=== PATIENT | female | born 1980 | race Caucasian/White ===

== ENCOUNTER 2016-10-23 10:43 | Emergency (ER) | payer MEDICAID ==
[2016-10-23 10:50] VITALS: TEMP 97.7
--- NOTE | 2016-10-23 11:10 | EDPHY ---
General Narrative: CHIEF COMPLAINT: Left foot pain HISTORY OF PRESENT ILLNESS: complains of pain in the bottom and dorsum of the left foot. Yesterday she was walking down the street when she stepped on a large piece of ice/snow. She said she is not exactly sure what happened at that time. But since that time, she has had increasing pain near the MTP joint both dorsum and plantar. No abrasions, contusions or lacerations. No pain in his lateral ankle, wing, heel or knee. Worse with palpation. Improved at rest. Does not radiate. No other associated complaints or modifying factors. REVIEW OF SYSTEMS: Ten systems reviewed and are negative unless otherwise noted in the HPI EXAMINATION General Appearance: Alert, no distress Head: normocephalic, atraumatic Eyes: Pupils equal and round, no conjunctival pallor or injection Neck: Normal inspection Respiratory: No dyspnea or retractions. No distress Cardiovascular: Pulses normal throughout With 2+ symmetric DP and PT pulses. Brisk cap refill Gastrointestinal: No distention Neurological: A&O, sensory symmetric, strength symmetric in all limbs Skin: Warm and dry, no rash Extremities: left lower extremity: Tenderness to palpation at the MTP joint dorsum and plantar surface. No crepitus. No step-off or deformity. No talar shift. No malleolar tenderness. No tenderness of the heel. Psychiatric: Mood and affect normal MDM: mechanical injury to the left foot. No evidence of fracture dislocation on the x-ray as read by me and the radiologist. There are chronic changes as noted in the report. I discussed the incidental findings with her and recommended she follow up with the primary care physician for definitive care, orthopedist should be warranted by her own tolerance of pain. Discharged home stable conditions with [id number] ibuprofen given her history. Patient is comfortable with this and discharged home in stable condition. ED Precautions: Worsening pain. Erythema, edema, cyanosis, pallor, paresthesia or anesthesia. SUPERVISION: This patient was independently evaluated without the aide of supervising physician. - History Smoking Status: Current every day smoker - Objective Vital Signs: Initial Vital Signs Temperature (C) 97.7 F 10/23/16 10:49 Heart Rate 80 10/23/16 10:49 Respiratory Rate 16 10/23/16 10:49 Blood Pressure 134/74 H 10/23/16 10:49 O2 Sat (%) 94 10/23/16 10:49 O2 Delivery Mode Room Air Allergies/Adverse Reactions: No Known Allergies Allergy (Verified 09/03/16 11:14) Home Medications: Medication Instructions Recorded Chlorthiadone 04/07/15 Gabapentin [Neurontin] 100 mg PO HS 04/07/15 Topiramate [Topamax 100MG (*)] 100 mg PO 06/13/16 IBUPROFEN 08/15/16 Omeprazole 08/15/16 Magnesium Citrate [Magnesium 300 ml PO ONCE #1 bottle 08/23/16 Citrate 300 ml (*)] Potassium Chloride [Klor-Con] 20 meq PO DAILY #15 packet 08/23/16 Oxycodone HCl 5 mg PO Q4-6PRN PRN #11 capsule 09/03/16 Departure - Departure Disposition: Home, Routine, Self-Care Clinical Impression: Foot sprain Qualifiers: Encounter type: initial encounter Laterality: left Qualifier Code: (S93.602A) Unspecified sprain of left foot, initial encounter Acute foot pain Qualifiers: Laterality: left Qualifier Code: (M79.672) Pain in left foot Condition: Good Instructions: Foot Sprain (ED) Additional Instructions: Follow-up with Orthopedics, chief enterprise architect or PCP. ER precautions as discussed Referrals: Mercedes Ansari [Primary Care Provider] - As per Instructions
--- NOTE | 2016-10-23 11:43 | DX ---
Left foot, 3 views. HISTORY: Pain. Trauma. FINDINGS: Moderate hallux valgus with lateral subluxation of the sesamoids. No fracture or periostitis. Joint spaces are maintained. A small bone fragment anterior to the tibial plafond may represent a sequela of prior trauma, well co rticated. There is also a well-corticated bone fragment dorsal to the tarsal-metatarsal articulation on lateral radiograph which appears smoothly marginated and well corticated, without soft tissue swel ling. This bone fragment appears interposed between the proximal first and second metatarsals on the AP examination. IMPRESSION: 1. Sequela prior trauma and underlying hallux valgus, without acute fracture identified.
[2016-10-23 12:34] VITALS: BP 165/86; PULSE 85; RESP 19; O2SAT 96
== END 2016-10-23 12:32 | disposition home or self-care (01) ==
DX: S93.602A Unspecified sprain of left foot, initial encounter (principal); F17.200 Nicotine dependence, unspecified, uncomplicated; X58.XXXA Exposure to other specified factors, initial encounter; Y92.410 Unspecified street and highway as the place of occurrence of the external cause; Y93.01 Activity, walking, marching and hiking

== ENCOUNTER 2016-12-11 05:21 | Emergency (ER) | payer MEDICAID ==
[2016-12-11 05:28] VITALS: BP 146/82; PULSE 82; RESP 16; TEMP 97.9; O2SAT 96
--- NOTE | 2016-12-11 07:08 | EDPHY ---
H & P Time Seen by Provider: 12/11/16 07:00 HPI/ROS: CHIEF COMPLAINT: ongoing left foot pain HISTORY OF PRESENT ILLNESS: 36-year-old female presents ongoing left foot pain. She slipped on the ice in October and since then she has ongoing left foot pain. The pain is located the base of her 2nd toe. The pain increases 2nd toe movement and with weight-bearing. She has been seen in this emergency department once and by her primary care physician twice for pain. X-ray reportedly negative. ROS: No numbness, weakness, bleeding, syncopal episode, other injury. Past Medical/Surgical History: Obesity Arthritis History of narcotic addiction, in recovery Smoking Status: Current every day smoker Physical Exam: Alert and oriented, no acute distress. Extremities: left foot-normal inspection, tenderness at the base of the 2nd toe on the dorsal and plantar surface, pain with range of motion 2nd toe Skin: intact, no erythema or warmth Neuro: Motor and sensory intact Vascular: Capillary refill brisk distally. Constitutional: Initial Vital Signs Temperature (C) 36.6 C 12/11/16 05:24 Heart Rate 82 12/11/16 05:24 Respiratory Rate 16 12/11/16 05:24 Blood Pressure 146/82 H 12/11/16 05:24 O2 Sat (%) 96 12/11/16 05:24 O2 Delivery Mode Room Air Allergies/Adverse Reactions: No Known Allergies Allergy (Verified 12/11/16 05:28) Home Medications: Medication Instructions Recorded Chlorthiadone 04/07/15 Gabapentin [Neurontin] 100 mg PO HS 04/07/15 Topiramate [Topamax 100MG (*)] 100 mg PO 06/13/16 IBUPROFEN 08/15/16 Potassium Chloride [Klor-Con] 20 meq PO DAILY #15 packet 08/23/16 Medical Decision Making - Diagnostics Imaging: X-ray independently reviewed by me reveals no acute fracture. ED Course/Re-evaluation: I gave this patient a postop shoe. She is currently wearing slippers, which will certainly aggravate the pain, given lack of support or cushioning. I instructed her on how to sofi tape her toes. She will follow up with a pulp drier firer. Departure - Departure Disposition: Home, Routine, Self-Care Clinical Impression: Foot pain, left Condition: Good Instructions: Arthralgia (ED) Additional Instructions: Ibuprofen 600 mg 3 times daily while the pain persists. Referrals: Mercedes Ansari [Primary Care Provider] - As per Instructions Jose Del Cid DPM [Doctor of Podiatric Medicine] - As per Instructions (You have been referred to a pulp drier firer. Call to make an appointment.)
== END 2016-12-11 07:55 | disposition home or self-care (01) ==
DX: M79.672 Pain in left foot (principal); F17.200 Nicotine dependence, unspecified, uncomplicated
CPT/HCPCS: L3260

== ENCOUNTER 2016-12-23 13:27 | Emergency (ER) | payer MEDICAID ==
[2016-12-23 15:11] LABS: COLOR YELLOW; LEUKOCYTE ESTERASE,URINE NEGATIVE (NEGATIVE); NITRITE,URINE NEGATIVE (NEGATIVE)
[2016-12-23] MEDS ORDERED: OXYCODONE/APAP 5/325 TAB PO ONE (15:26)
--- NOTE | 2016-12-23 15:26 | EDPHY ---
H & P Stated Complaint: Back and L abdo pain-thinks kidney infection Time Seen by Provider: 12/23/16 15:15 HPI/ROS: HPI: 36-year-old female presents to emergency department with chief concern left side pain. Reports 9/10 pleuritic left sided dull aching pain that onset suddenly yesterday morning possibly associated with urinary frequency but this is difficult to assess as she takes hydrochlorothiazide and "pees often". Pain is located in the left low flank, left side, left low abdomen, left mid abdomen , left lower ribs. Denies fever, chills, myalgias, URI symptoms, shortness of breath, chest pain, nausea, vomiting. No aggravating or alleviating factors. This is associated with a decreased appetite. No recent trauma. No calf pain or swelling. Has a past medical history history that includes obesity, polysubstance abuse, back surgery, cholecystectomy, cholelithiasis, meth use, current daily smoker, constipation. No personal history of coagulopathy. Brother has a history of blood clots. No recent long car or plane travel. No personal or family history of kidney stone. ROS:10 point review of systems is negative other than as stated in HPI Source: Patient Exam Limitations: No limitations - Personal History LMP (Females 10-55): 8-14 Days Ago Current Tetanus/Diphtheria Vaccine: Unsure Current Tetanus Diphtheria and Acellular Pertussis (TDAP): Unsure Tetanus Vaccine Date: < 10 YEARS - Medical/Surgical History Hx Asthma: No Hx Chronic Respiratory Disease: Yes Hx Diabetes: No Hx Cardiac Disease: Yes Hx Renal Disease: No Hx Cirrhosis: No Hx Alcoholism: No Hx HIV/AIDS: No Hx Splenectomy or Spleen Trauma: No Other PMH: PMHx: obesity, HEART MURMUR, ANNABEL, CHF, arthritis,. PSHx: L4-5 disectomy-back surg 8 yrs ago, gall bladder, tubal ligation, BIPOLAR - Family History Significant Family History: No pertinent family hx - Social History Smoking Status: Heavy smoker Alcohol Use: Occasionally Drug Use: Other (History of polysubstance abuse) Additional Social History: - Physical Exam Exam: Vital signs stable, reviewed by me General: Obese, Awake, alert, calm, cooperative. No acute distress. Head: Normalocephalic. Atraumatic. EENT: PERRLA. EOMI. No pallor or injection. Anicteric. No nystagmus. No injection. TMs intact bilaterally with normal landmarks. No rhinnorhea, nasal passages clear. Oropharynx without redness, exudates, or lesions. Tonsils 2+ bilaterally, no exudates. Neck: Supple, nontender. No lymphadenopathy. Full range of motion. No meningismus. Respiratory: Breathing unlabored. Breath sounds equal bilaterally and clear to auscultation. No adventitious sounds. CV: Chest nontender, atraumatic. Heart rate regular. No murmur, distal pulses 2+ bilaterally. Brisk cap refill all extremities. GI: Abdomen soft, generalized left-sided tenderness. Bowel sounds normoactive and positive x4 quadrants. : No suprapubic tenderness. No CVA tenderness. Neuro: Alert. Oriented x 3. Speech clear. Nonfocal cranial nerves throughout. Sensation intact all extremities. Skin: Skin warm, dry, intact. No rashes, abrasions, or lacerations. Skin turgor normal. Extremities: Full range of motion in all 4 extremities. Strength 5+ all extremities. No calf pain or swelling. Negative Homans sign bilaterally. Constitutional: Initial Vital Signs Temperature (C) 36.6 C 12/23/16 13:39 Heart Rate 73 12/23/16 13:39 Respiratory Rate 18 12/23/16 13:39 O2 Sat (%) 95 12/23/16 13:39 O2 Delivery Mode Room Air Allergies/Adverse Reactions: No Known Allergies Allergy (Verified 12/23/16 13:45) Home Medications: Medication Instructions Recorded Gabapentin [Neurontin] 100 mg PO HS 04/07/15 Topiramate [Topamax 100MG (*)] 100 mg PO 06/13/16 IBUPROFEN 08/15/16 Potassium Chloride [Klor-Con] 20 meq PO DAILY #15 packet 08/23/16 Hydrochlorothiazide 12/23/16 oxyCODONE/APAP 5/325 [Percocet 1 - 2 tab PO Q6H PRN #4 tab 12/23/16 5/325 (*)] Medical Decision Making - Diagnostics Imaging: KUB , 3 views History: Left-sided flank pain x2 days history of cholecystectomy Comparison: None Findings: There is fecal material throughout the nondilated colon. The patient is obese. There is no evidence of bowel obstruction. There are no dilated loops. Retroperitoneal fat planes appear intact. The lung bases are normally aerated. Right upper quadrant surgical clips are consistent with previous cholecystectomy. Impression: Possible constipation. No obstruction. Dictated By: Aravind Qiu MD CT angio chest: Indication: Elevated D-dimer, pleuritic left-sided pain extending under the left ribs No evidence of pulmonary embolism, final report pending at time this dictation ED Course/Re-evaluation: 36-year-old female presents to emergency department with chief concern "left- side pain." When asked about the location of her pain, she points to her left abdomen, left side, and left low back. Past medical history is notable for abdominal pain, cholecystectomy, constipation. She had an abdominal MRI in August of 2016. Requests pain meds. She is on a no narcotic list. She is given 2 Percocet for pain. Labs are pending. Will check a D-dimer since her pain is pleuritic, there is a positive family history of blood clots, and pain does include the left lower chest. Urinalysis is negative for evidence of UTI or hematuria. Urine HCG is negative. Have considered kidney stone however there is no personal or family history of this and given a urinalysis negative for RBCs, will avoid CT of the abdomen and pelvis for now. KUB shows possible constipation. She has a history of this. Will have her use magnesium citrate [id number]. D-dimer was mildly positive. CT angio chest negative for evidence of pulmonary embolism. She has been counseled regarding the need for prompt follow-up tomorrow for recheck with primary care. She agrees to do so. Her vitals are entirely stable at discharge. Pain has resolved at discharge. She is afebrile. Differential Diagnosis: Differential diagnosis includes but is not limited to and in no particular order pyelonephritis, kidney stone, constipation, diverticulitis, pulmonary embolism, pneumonia - Data Points Laboratory Results: Laboratory Results 12/23/16 15:30 12/23/16 15:30 12/23/16 12/23/16 12/23/16 15:30 15:30 15:30 WBC 10.73 10^3/uL H 10^3/uL (3.80-9.50) RBC 4.97 10^6/uL 10^6/uL (4.18-5.33) Hgb 14.7 g/dL g/dL (12.6-16.3) Hct 43.1 % % (38.0-47.0) MCV 86.7 fL fL (81.5-99.8) MCH 29.6 pg pg (27.9-34.1) MCHC 34.1 g/dL g/dL (32.4-36.7) RDW 13.1 % % (11.5-15.2) Plt Count 311 10^3/uL 10^3/uL (150-400) MPV 10.1 fL fL (8.7-11.7) Neut % (Auto) 58.9 % % (39.3-74.2) Lymph % (Auto) 32.9 % % (15.0-45.0) [place] % (Auto) 5.7 % % (4.5-13.0) Eos % (Auto) 1.8 % % (0.6-7.6) Baso % (Auto) 0.4 % % (0.3-1.7) Nucleat RBC Rel Count 0.0 % % (0.0-0.2) Absolute Neuts (auto) 6.33 10^3/uL 10^3/uL (1.70-6.50) Absolute Lymphs (auto) 3.53 10^3/uL H 10^3/uL (1.00-3.00) Absolute Monos (auto) 0.61 10^3/uL 10^3/uL (0.30-0.80) Absolute Eos (auto) 0.19 10^3/uL 10^3/uL (0.03-0.40) Absolute Basos (auto) 0.04 10^3/uL 10^3/uL (0.02-0.10) Absolute Nucleated RBC 0.00 10^3/uL 10^3/uL (0-0.01) Immature Gran % 0.3 % % (0.0-1.1) Immature Gran # 0.03 10^3/uL 10^3/uL (0.00-0.10) D-Dimer 0.52 ug/mLFEU H ug/mLFEU (0.00-0.50) Sodium 141 mEq/L mEq/L (134-144) Potassium 3.4 mEq/L L mEq/L (3.5-5.2) Chloride 106 mEq/L mEq/L (97-110) Carbon Dioxide 24 mEq/l mEq/l (22-31) Anion Gap 11 mEq/L mEq/L (8-16) BUN 16 mg/dL mg/dL (7-23) Creatinine 0.9 mg/dL mg/dL (0.6-1.0) Estimated GFR > 60 Glucose 102 mg/dL H mg/dL (70-100) Calcium 9.3 mg/dL mg/dL (8.5-10.4) Urine Color Urine Appearance Urine pH Ur Specific Harris Urine Protein Urine Ketones Urine Blood Urine Nitrate Urine Bilirubin Urine Urobilinogen Ur Leukocyte Esterase Urine Glucose Urine Test 12/23/16 12/23/16 14:36 14:36 WBC RBC Hgb Hct MCV MCH MCHC RDW Plt Count MPV Neut % (Auto) Lymph % (Auto) [place] % (Auto) Eos % (Auto) Baso % (Auto) Nucleat RBC Rel Count Absolute Neuts (auto) Absolute Lymphs (auto) Absolute Monos (auto) Absolute Eos (auto) Absolute Basos (auto) Absolute Nucleated RBC Immature Gran % Immature Gran # D-Dimer Sodium Potassium Chloride Carbon Dioxide Anion Gap BUN Creatinine Estimated GFR Glucose Calcium Urine Color YELLOW Urine Appearance CLEAR Urine pH 5.0 (5.0-7.5) Ur Specific Harris 1.018 (1.002-1.030) Urine Protein NEGATIVE (NEGATIVE) Urine Ketones NEGATIVE (NEGATIVE) Urine Blood NEGATIVE (NEGATIVE) Urine Nitrate NEGATIVE (NEGATIVE) Urine Bilirubin NEGATIVE (NEGATIVE) Urine Urobilinogen NEGATIVE EU EU (0.2-1.0) Ur Leukocyte Esterase NEGATIVE (NEGATIVE) Urine Glucose NEGATIVE (NEGATIVE) Urine Test NEGATIVE Medications Given: Discontinued Medications Oxycodone/Acetaminophen (Percocet 5/325) 2 tab PO EDNOW ONE Stop: 12/23/16 15:27 Last Admin: 12/23/16 15:37 Dose: 2 tab Departure - Departure Disposition: Home, Routine, Self-Care Clinical Impression: Left sided abdominal pain, Left-sided back pain Condition: Good Instructions: Abdominal Pain (ED), Flank Pain (ED) Additional Instructions: Plan: Follow up with primary care provider tomorrow for recheck without fail--When you call to schedule appointment, please let the office know you are an "ER follow up" appointment" May use 1-2 Percocet every 6-8 hours as needed for severe pain--Never drink or drive while taking this medication. This medication impairs decision making capacity so do not work or sign important documents while taking. This medication its constipating so drink plenty of fluids and consider an over-the- counter stool softener such as docusate sodium (Colace) while taking this medication. This medication has addictive properties. You should use the least amount for the shortest amount of time. [facility] do not refill narcotic pain medication prescriptions. This is a hospital policy. You will need to follow up as indicated for recheck for further narcotic refills. Mag citrate [id number] as directed on the bottle for constipation Referrals: Mercedes Ansari [Primary Care Provider] - As per Instructions Prescriptions: oxyCODONE/APAP 5/325 [Percocet 5/325 (*)] 1 - 2 tab PO Q6H PRN #4 tab PRN Reason: Pain, Severe
[2016-12-23 15:39] LABS: % IMMATURE GRANULYOCYTES 0.3 % (0.0-1.1); ABSOLUTE IMMATURE GRANULOCYTES 0.03 10^3/uL (0.00-0.10); ADD DIFF? NO; ADD MORPH? NO; ADD SCAN? NO; ATYPICAL LYMPHOCYTE FLAG 0 (0-99); FRAGMENT RBC FLAG 0 (0-99); HEMATOCRIT 43.1 % (38.0-47.0); HEMOGLOBIN 14.7 g/dL (12.6-16.3); LEFT SHIFT FLG 0 (0-99); LIPEMIA HEMOLYSIS FLAG 90 (0-99); MEAN CELL HEMOGLOBIN 29.6 pg (27.9-34.1); MEAN CELL HEMOGLOBIN CONCENTR. 34.1 g/dL (32.4-36.7); MEAN CELL VOLUME 86.7 fL (81.5-99.8); MEAN PLATELET VOLUME 10.1 fL (8.7-11.7); PLATELET CLUMPS FLAG 0 (0-99); PLATELET COUNT 311 10^3/uL (150-400); RED BLOOD CELL COUNT 4.97 10^6/uL (4.18-5.33); RED CELL DISTRIBUTION WIDTH 13.1 % (11.5-15.2)
[2016-12-23 15:57] LABS: ANION GAP 11 mEq/L (8-16); CALCIUM 9.3 mg/dL (8.5-10.4); CARBON DIOXIDE 24 mEq/l (22-31); CHLORIDE 106 mEq/L (97-110); CREATININE 0.9 mg/dL (0.6-1.0); GLOMERULAR FILTRATION RATE > 60; GLUCOSE 102 mg/dL (70-100); POTASSIUM 3.4 mEq/L (3.5-5.2); SODIUM 141 mEq/L (134-144)
[2016-12-23] MEDS ORDERED: IOPAMIDOL (ISOVUE 370) 100 ML BTL IV ONE (16:02)
[2016-12-23 18:04] VITALS: BP 103/65; PULSE 73; RESP 16; TEMP 98.2; O2SAT 93
== END 2016-12-23 18:04 | disposition home or self-care (01) ==
DX: R10.9 Unspecified abdominal pain (principal); M54.9 Dorsalgia, unspecified; I50.9 Heart failure, unspecified; F17.200 Nicotine dependence, unspecified, uncomplicated; Z98.51 Tubal ligation status
CPT/HCPCS: Q9967

== ENCOUNTER 2017-02-28 17:22 | Emergency (ER) | payer MEDICAID ==
[2017-02-28 18:07] VITALS: TEMP 97.7
--- NOTE | 2017-02-28 18:32 | EDPHY ---
H & P Stated Complaint: sore throat x 2 days Source: Patient Exam Limitations: No limitations - Personal History LMP (Females 10-55): 8-14 Days Ago Current Tetanus/Diphtheria Vaccine: Unsure Current Tetanus Diphtheria and Acellular Pertussis (TDAP): Unsure Tetanus Vaccine Date: < 10 YEARS - Medical/Surgical History Hx Asthma: No Hx Chronic Respiratory Disease: Yes Hx Diabetes: No Hx Cardiac Disease: Yes Hx Renal Disease: No Hx Cirrhosis: No Hx Alcoholism: No Hx HIV/AIDS: No Hx Splenectomy or Spleen Trauma: No Other PMH: PMHx: obesity, HEART MURMUR, ANNABEL, CHF, arthritis,. PSHx: L4-5 disectomy-back surg 8 yrs ago, gall bladder, tubal ligation, BIPOLAR - Social History Smoking Status: Heavy smoker Time Seen by Provider: 02/28/17 18:22 HPI/ROS: CHIEF COMPLAINT: Sore throat HISTORY OF PRESENT ILLNESS: 36-year-old female presents emergency department complaining of nasal congestion, sore throat, cough and congestion that started yesterday. Patient denies fevers and chills, no chest pain or shortness of breath. Multiple sick contacts at work. Patient reports pain and decreased water intake today due to sore throat. Patient is a daily heavy cigarette smoker. REVIEW OF SYSTEMS: A comprehensive 10 point review of systems is otherwise negative aside from elements mentioned in the history of present illness. (Farideh Cabrera) - Physical Exam Exam: General: Alert, nontoxic. ENT: Tympanic membranes clear, external auditory canal, external ear and surrounding soft tissue including over the mastoid unremarkable. Nasopharynx is injected, there is no rhinorrhea. Oropharynx with erythema. There is no exudate. No tonsillar hypertrophy. No asymmetry. The uvula is midline. No elevation of tongue. There is no hoarseness. No drooling, patient has good control of their oral secretions. No trismus. No stridor. Cardiac: Regular rate and rhythm. Respiratory: Lungs clear to auscultation bilaterally. Neurological: no meningismus. Skin: No rashes. (Farideh Cabrera) Constitutional: Initial Vital Signs Temperature (C) 36.5 C 02/28/17 18:05 Heart Rate 77 02/28/17 18:05 Respiratory Rate 16 02/28/17 18:05 Blood Pressure 155/85 H 05/26/17 18:05 O2 Sat (%) 98 02/28/17 18:05 O2 Delivery Mode Room Air Allergies/Adverse Reactions: No Known Allergies Allergy (Verified 12/23/16 13:45) Home Medications: Medication Instructions Recorded Gabapentin [Neurontin] 100 mg PO HS 04/07/15 Topiramate [Topamax 100MG (*)] 100 mg PO 06/13/16 IBUPROFEN 08/15/16 Potassium Chloride [Klor-Con] 20 meq PO DAILY #15 packet 08/23/16 Hydrochlorothiazide 12/23/16 oxyCODONE/APAP 5/325 [Percocet 1 - 2 tab PO Q6H PRN #4 tab 12/23/16 5/325 (*)] Albuterol [Proventil Inhaler HFA 1 - 2 puffs IH Q4H #1 mdi 02/28/17 (*)] Fluticasone Nasal [Flonase Nasal 1 sprays NASAL DAILY #1 mdi 02/28/17 [place] (RX)] Medical Decision Making ED Course/Re-evaluation: I did not see this patient while she was in the emergency department. However her care was discussed with the nurse practitioner while the patient was in the department. I agree with treatment plan and management (Kahlil Garza) - Data Points Laboratory Results: 02/28/17 Unknown Group A Strep DNA NEGATIVE (NEGATIVE) Departure - Departure Disposition: Home, Routine, Self-Care Clinical Impression: URI (upper respiratory infection) Condition: Good Instructions: Upper Respiratory Infection (ED) Additional Instructions: Take over the counter Tylenol and ibuprofen as instructed. Rest, drink plenty of fluids. Use a saline nasal rinse, humidifier at night, hot steam showers. Return to the ED for difficulty breathing, chest pain, other concerns. Use 1 spray of Flonase in each nostril daily for 7 days, use 2 puffs of albuterol inhaler every 4-6 hours as needed for cough. Referrals: Mercedes Ansari [Primary Care Provider] - As per Instructions Stand Alone Forms: Work Excuse Prescriptions: Albuterol [Proventil Inhaler HFA (*)] 1 - 2 puffs IH Q4H #1 mdi Fluticasone Nasal [Flonase Nasal [place] (RX)] 1 sprays NASAL DAILY #1 mdi
[2017-02-28 18:50] VITALS: BP 119/63; PULSE 76; RESP 18; O2SAT 95
== END 2017-02-28 18:49 | disposition home or self-care (01) ==
DX: J06.9 Acute upper respiratory infection, unspecified (principal); I50.9 Heart failure, unspecified; F17.200 Nicotine dependence, unspecified, uncomplicated

== ENCOUNTER 2017-10-06 09:59 | Emergency (ER) | payer SELFPAY ==
[2017-10-06 10:17] VITALS: PULSE 79; RESP 18; TEMP 98.1; O2SAT 95
--- NOTE | 2017-10-06 10:43 | EDPHY ---
H & P Stated Complaint: vaginal itching and burning since yesterday Time Seen by Provider: 10/06/17 10:40 HPI/ROS: HPI: This is a 37-year-old female presents with Chief Complaint:vaginal itching and burning since yesterday Location:vagina Quality: Itching and burning Duration: 1 day Signs and Symptoms: no fever, no nausea, no vomiting, no hematemesis, no blood in stool, no abdominal bloating, no diarrhea, no back pain, no urinary symptoms , no vaginal bleeding, no indigestion, no chest pain, no shortness of breath Timing: Gradual onset, worsening Severity: Moderate Context: Patient reports that 3 nights ago her and her you sex toys and whip cream to at excitement to their sex life. Patient really reports that her is well endowed in normally experiences some discomfort with vaginal penetration. During the sexual encounter of mention, patient reports that she experienced the same level of discomfort as always and denies any vaginal bleeding/trauma. One day ago she started to experience some vaginal itching accompanied by burning and yellowish white discharge. Patient has no history of diabetes. She denies any concern for sexually transmitted disease. She does have a history of PID secondary to gonorrhea approximately 3 years ago. Status post bilateral tubal ligation. Modifying Factors: None Comment: ROS: see HPI Constitutional: No fever, no chills, no weight loss Eyes: No blurred vision Respiratory: No shortness of breath, no cough Cardiovascular: No chest pain, no palpitations Gastrointestinal: No nausea, no vomiting, no diarrhea, no hematemesis, no blood in stool Genitourinary: No dysuria, no blood in urine Extremities: No myalgias, no edema Neurologic: No weakness, no numbness Skin: No rashes, no petechiae Hematologic: No bruising, no bleeding MEDICAL/SURGICAL/SOCIAL HISTORY: Medical history: Bipolar disorder, obesity, HEART MURMUR, ANNABEL, CHF, arthritis Surgical history: Bilateral tubal ligation, cholecystectomy, common bile duct dilatation, back surgery Social history: with 4 children. CONSTITUTIONAL: Obese female, nontoxic in appearance, awake and alert , no obvious distress HEENT: Atraumatic and normocephalic, PERRL, EOMI. Tympanic membranes clear. Oropharynx clear, no exudate and moist pink mucosa. Airway patent. No lymphadenopathy. No meningismus. Cardiovascular: Normal S1/S2, regular rate, regular rhythm, without murmur rub or gallop. PULMONARY/CHEST: Symmetrical and nontender. Clear to auscultation bilaterally. Good air movement. No accessory muscle usage. ABDOMEN: Soft, nondistended, nontender, no rebound, no guarding, no peritoneal signs, no masses or organomegaly. No CVAT. PELVIC: normal external genitalia, normal cervix, cervical os was closed- anteverted, no cervical motion tenderness, no adnexal mass, + thick yellowish white malodorous discharge, no bleeding, no laceration The exam was performed with a jacker feeder. EXTREMITIES: 2/2 pulses, strength 5/5, no deformities, no clubbing, no cyanosis or edema. NEUROLOGICAL: no focal neuro deficits. GCS 15. SKIN: Warm and dry, no erythema. no rash. Good capillary refill. Source: Patient Exam Limitations: No limitations - Personal History LMP (Females 10-55): 22-28 Days Ago Current Tetanus/Diphtheria Vaccine: Yes Tetanus Vaccine Date: < 10 YEARS - Medical/Surgical History Hx Asthma: No Hx Chronic Respiratory Disease: Yes Hx Diabetes: No Hx Cardiac Disease: Yes Hx Renal Disease: No Hx Cirrhosis: No Hx Alcoholism: No Hx HIV/AIDS: No Hx Splenectomy or Spleen Trauma: No Other PMH: PMHx: obesity, HEART MURMUR, ANNABEL, CHF, arthritis,. PSHx: L4-5 disectomy-back surg 8 yrs ago, gall bladder, tubal ligation, BIPOLAR - Social History Smoking Status: Heavy smoker Constitutional: Initial Vital Signs Temperature (C) 36.7 C 10/06/17 10:04 Heart Rate 79 10/06/17 10:04 Respiratory Rate 18 10/06/17 10:04 Blood Pressure 146/80 H 10/06/17 10:04 O2 Sat (%) 95 10/06/17 10:04 O2 Delivery Mode Room Air Allergies/Adverse Reactions: No Known Allergies Allergy (Verified 10/06/17 10:01) Home Medications: Medication Instructions Recorded Gabapentin [Neurontin] 100 mg PO HS 04/07/15 Topiramate [Topamax 100MG (*)] 100 mg PO 06/13/16 IBUPROFEN 08/15/16 Potassium Chloride [Klor-Con] 20 meq PO DAILY #15 packet 08/23/16 Hydrochlorothiazide 12/23/16 Albuterol [Proventil Inhaler HFA 1 - 2 puffs IH Q4H #1 mdi 02/28/17 (*)] Fluticasone Nasal [Flonase Nasal 1 sprays NASAL DAILY #1 mdi 02/28/17 [place] (RX)] Chlorthalidone 10/06/17 Metronidazole [Metrogel-Vaginal] 1 annika VG HS 5 Days #5 gel.w.appl 10/06/17 traMADol 10/06/17 Medical Decision Making ED Course/Re-evaluation: Pelvic exam performed and vaginal swabs obtained No signs of vaginal trauma/laceration/bleeding No signs of PID Vital signs stable upon arrival. Patient was treated with 1 dose of Diflucan and Metrogel vaginal insertion for bacterial vaginosis. This patient was seen under the supervision of my secondary supervising physician. I evaluated care for this patient independently. Discussed this patient with Dr. Tompkins who did not see the patient. Patient's presentation, labs/imaging, treatment and plan of care were discussed with secondary supervising physician. Differential Diagnosis: Differential diagnosis includes but is not limited to bacterial vaginosis, candidiasis, gonorrhea, chlamydia, Trichomonas. - Data Points Laboratory Results: 10/06/17 10/06/17 10:35 10:35 Trichomonas (Wet Prep) NO YEAST Hailey species DNA NEGATIVE (NEGATIVE) C.trachomatis RNA (TMA) Pending [place]rella DNA Probe POSITIVE H (NEGATIVE) N.gonorrhoeae RNA (TMA) Pending Trichomonas DNA Probe NEGATIVE (NEGATIVE) Medications Given: Discontinued Medications Fluconazole (Diflucan) 150 mg PO EDNOW ONE Stop: 10/06/17 11:37 Last Admin: 10/06/17 11:45 Dose: 150 mg Departure - Departure Disposition: Home, Routine, Self-Care Clinical Impression: Bacterial vaginitis Condition: Good Instructions: Bacterial Vaginosis (ED) Additional Instructions: Please observe pelvic rest x 1 week. Pelvic rest includes no tampons, douching, sexual vaginal intercourse. Please take all medications as prescribed until fully complete. Referrals: Mercedes Ansari [Primary Care Provider] - As per Instructions Prescriptions: Metronidazole [Metrogel-Vaginal] 1 annika VG HS 5 Days #5 gel.w.appl
[2017-10-06] MEDS ORDERED: FLUCONAZOLE 150 MG TAB PO ONE (11:36)
[2017-10-06 11:49] VITALS: BP 139/89
[2017-10-07 12:56] LABS: GC AMPLIFICATION GENPROBE NEGATIVE (NEGATIVE)
== END 2017-10-06 11:49 | disposition home or self-care (01) ==
DX: N76.0 Acute vaginitis (principal); I50.9 Heart failure, unspecified

== ENCOUNTER 2018-02-09 15:43 | Emergency (ER) | payer MEDICAID ==
--- NOTE | 2018-02-09 15:52 | EDPHY ---
H & P Stated Complaint: sore throat, cough, ear ache and fatigue since 02/08/18. Time Seen by Provider: 02/09/18 15:52 HPI/ROS: HPI CHIEF COMPLAINT: Sore throat HISTORY OF PRESENT ILLNESS: Patient is a 37-year-old female, she presents emergency room with sore throat times 24 hr. No fever. Endorses a dry cough. Complains of ear fullness/discomfort, main complaint is discomfort in her throat. She denies high fever vomiting. Denies chest pain or shortness of breath. Current level pain 12/13. Past Medical History: chronic pain, chronic neuropathy Past Surgical History: Diskectomy, Social History: Denies daily use of drugs alcohol tobacco. Family History: Noncontributory ROS REVIEW OF SYSTEMS: A comprehensive 10 point review of systems is otherwise negative aside from elements mentioned in the history of present illness. Exam Constitutional appears nontoxic no acute distress triage nursing summary reviewed, vital signs reviewed, awake/alert. Eyes normal conjunctivae and sclera, EOMI, PERRLA. HENT posterior pharynx erythematous, no significant exudate, no significant swelling, uvula midline, TMs are clear bilaterally. moist mucus membranes, no epistaxis, neck supple/ no meningismus, no raccoon eyes. Respiratory clear to auscultation bilaterally, normal breath sounds, no respiratory distress, no wheezing. Cardiovascular rate normal, regular rhythm, no murmur, no edema, distal pulses normal. Gastrointestinal soft, non-tender, no rebound, no guarding, normal bowel sounds, no distension, no pulsatile mass. Genitourinary no CVA tenderness. Musculoskeletal no midline vertebral tenderness, full range of motion, no calf swelling, no tenderness of extremities, no meningismus, good pulses, neurovascularly intact. Skin pink, warm, & dry, no rash, skin atraumatic. Neurologic awake, alert and oriented x 3, AAOx3, moves all 4 extremities equally, motor intact, sensory intact, CN II-XII intact, normal cerebellar, normal vision, normal speech. Psychiatric normal mood/affect. Heme/Lymph/Immune no lymphadenopathy. Differential Diagnosis: Includes but is not limited to in a particular order, viral syndrome, upper respiratory tract infection, viral pharyngitis, strep pharyngitis, mono Medical Decision Making: Plan for this patient rapid strep. Re-evaluation: Given the erythema over tonsillar bed will most likely treat with azithromycin, Decadron and ibuprofen. Rapid strep has been sent. Discussed return precautions with her she understands return emergency room she develops worsening symptoms, this includes high fever, vomiting, severe sore throat, worsening symptoms. Rapid strep noted be negative. Prescription provided for as a throat Decadron ibuprofen. Return precautions discussed with the patient. She understands return emergency room if develops worsening pain vomiting or fever. Source: Patient - Personal History LMP (Females 10-55): 1-7 Days Ago Current Tetanus Diphtheria and Acellular Pertussis (TDAP): Yes Tetanus Vaccine Date: < 10 YEARS - Medical/Surgical History Hx Asthma: No Hx Chronic Respiratory Disease: Yes Hx Diabetes: No Hx Cardiac Disease: Yes Hx Renal Disease: No Hx Cirrhosis: No Hx Alcoholism: No Hx HIV/AIDS: No Hx Splenectomy or Spleen Trauma: No Other PMH: PMHx: obesity, HEART MURMUR, ANNABEL, CHF, arthritis,. PSHx: L4-5 disectomy-back surg 8 yrs ago, gall bladder, tubal ligation, BIPOLAR - Social History Smoking Status: Heavy smoker Constitutional: Initial Vital Signs Temperature (C) 36.2 C 02/09/18 15:45 Heart Rate 110 H 02/09/18 15:45 Respiratory Rate 18 02/09/18 15:45 Blood Pressure 120/82 H 02/09/18 15:45 O2 Sat (%) 94 02/09/18 15:45 O2 Delivery Mode Room Air Allergies/Adverse Reactions: No Known Allergies Allergy (Verified 10/06/17 10:01) Home Medications: Medication Instructions Recorded Gabapentin [Neurontin] 100 mg PO HS 04/07/15 Topiramate [Topamax 100MG (*)] 100 mg PO 06/13/16 IBUPROFEN 08/15/16 Potassium Chloride [Klor-Con] 20 meq PO DAILY #15 packet 08/23/16 Hydrochlorothiazide 12/23/16 Albuterol [Proventil Inhaler HFA 1 - 2 puffs IH Q4H #1 mdi 02/28/17 (*)] Fluticasone Nasal [Flonase Nasal 1 sprays NASAL DAILY #1 mdi 02/28/17 [place] (RX)] Chlorthalidone 10/06/17 Metronidazole [Metrogel-Vaginal] 1 annika VG HS 5 Days #5 gel.w.appl 10/06/17 traMADol 10/06/17 Azithromycin [Zithromax] 250 mg PO DAILY #6 tab 02/09/18 Dexamethasone [Decadron 4 MG (*)] 4 mg PO DAILY #4 tab 02/09/18 Ibuprofen [Motrin (*)] 800 mg PO Q6-8PRN #10 tab 02/09/18 Medical Decision Making - Data Points Laboratory Results: 02/09/18 02/09/18 Unknown 16:00 Group A Strep Screen NEGATIVE (NEGATIVE) Group A Strep DNA Pending Departure - Departure Disposition: Home, Routine, Self-Care Clinical Impression: Pharyngitis Qualifiers: Pharyngitis/tonsillitis etiology: unspecified etiology Qualified Code(s): J02.9 - Acute pharyngitis, unspecified Condition: Good Instructions: Pharyngitis (ED) Additional Instructions: 1. Take antibiotics as prescribed. 2. Drink lots of fluids. 3. Return emergency room if you have worsening symptoms questions or concerns. Referrals: Mercedes Ansari [Primary Care Provider] - As per Instructions Prescriptions: Azithromycin [Zithromax] 250 mg PO DAILY #6 tab Dexamethasone [Decadron 4 MG (*)] 4 mg PO DAILY #4 tab Ibuprofen [Motrin (*)] 800 mg PO Q6-8PRN #10 tab
[2018-02-09 17:18] VITALS: BP 115/76
== END 2018-02-09 17:18 | disposition home or self-care (01) ==
DX: J02.9 Acute pharyngitis, unspecified (principal); I50.9 Heart failure, unspecified; F17.200 Nicotine dependence, unspecified, uncomplicated

== ENCOUNTER 2018-08-05 11:13 | Emergency (ER) | payer MEDICAID ==
[2018-08-05 11:28] VITALS: BP 147/94
--- NOTE | 2018-08-05 11:38 | EDPHY ---
General Time Seen by Provider: 08/05/18 11:34 Narrative: CHIEF COMPLAINT: Back pain HISTORY OF PRESENT ILLNESS: Patient presents by private vehicle with complaints of low back pain. Onset is 2-3 days ago. Location is right lower back, over her sacroiliac joint. Duration is constant. Rated as [id number] 1st. Now moderate. Worse with any kind of palpation or movement. Does not radiate. Denies any neuro complaints other than when she places a lidocaine patch on the area, at which time she developed some tingling in her right foot. No improvement with massage , heat, lidocaine patch. She has no incontinence of bowel or bladder. No fever. No spinal injections. No IV drug use. She has no midline tenderness. No trauma. No difficulty ambulating. No other associated complaints or modifying factors. REVIEW OF SYSTEMS: 10 systems were reviewed and negative with the exception of the elements mentioned in the history of present illness. PCP: Dr. Flor Ansari SPECIALISTS: Neurosurgery specialists PAST MEDICAL HISTORY: Bipolar disorder Morbid obesity, murmur, sleep apnea, CHF, osteoarthritis, degenerative disc disease PAST SURGICAL HISTORY: L4-5 diskectomy and fusion, cholecystectomy, tubal ligation SOCIAL HISTORY: Quit smoking 2 days ago. No alcohol use. Lives independently. FAMILY HISTORY: Noncontributory EXAMINATION: General Appearance: Alert, no distress. Ambulatory. Conversing in full and clear sentences. Head: normocephalic, atraumatic Eyes: Pupils equal and round, no conjunctival pallor or injection ENT, Mouth: Mucous membranes moist Neck: Normal inspection, supple, non-tender Cardiovascular: Regular rate. Symmetric DP pulses with good signs of perfusion distally. Back: Soft tissue tenderness over the right SI joint. There is no midline tenderness of the thoracic, lumbar cervical spine. No crepitus or deformity. Range of motion intact. Neurological: A&O, nonfocal, normal gait. Light sensory symmetric in lower extremities. Patellar reflexes symmetric 2+. Strength is symmetric in the hips , knees, ankles and great toes. Normal proprioception of the right great toe. steady gait Skin: Warm and dry, no rash. Multiple tattoos Extremities: Nontender, no pedal edema Psychiatric: Mood and affect normal DIFFERENTIAL DIAGNOSES: Including but not limited to sprain, strain, fracture, lumbar radiculopathy, sacroiliitis, diskitis MDM: 11:40 a.m. Acute right low back pain consistent with sacroiliitis versus sciatica versus strain. She has no history of trauma, spinal injections or IV drug abuse. She is status post L4-5 fusion many years ago. She is fully ambulatory without difficulty with steady gait. No evidence of acute cord compression, cauda equina or diskitis. No bony tenderness. No indication for x-ray or further imaging. We discussed symptomatic medications and follow up with her established care. We discussed ED precautions for any midline tenderness, fever , incontinence, numbness, tingling or weakness. She is comfortable this plan. She is discharged home stable condition. SUPERVISION: This patient was independently evaluated without direct involvement of or examination by the attending physician. CONSULTATION: None - History Smoking Status: Heavy smoker - Objective Vital Signs: Initial Vital Signs Temperature (C) 98.6 F 08/05/18 11:26 Heart Rate 81 08/05/18 11:26 Respiratory Rate 16 08/05/18 11:26 Blood Pressure 147/94 H 08/05/18 11:26 O2 Sat (%) 98 08/05/18 11:26 O2 Delivery Mode Room Air Allergies/Adverse Reactions: No Known Allergies Allergy (Verified 08/05/18 11:23) Home Medications: Medication Instructions Recorded Gabapentin [Neurontin] 100 mg PO HS 04/07/15 Topiramate [Topamax 100MG (*)] 100 mg PO 06/13/16 Albuterol [Proventil Inhaler HFA 1 - 2 puffs IH Q4H #1 mdi 02/28/17 (*)] traMADol 10/06/17 Dexamethasone [Decadron 4 MG (*)] 8 mg PO ONCE #2 tab 08/05/18 Wellbutrin 100mg (*) 08/05/18 Departure - Departure Disposition: Home, Routine, Self-Care Clinical Impression: Sacroiliitis Low back strain Qualifiers: Encounter type: initial encounter Qualified Code(s): S39.012A - Strain of muscle, fascia and tendon of lower back, initial encounter Condition: Good Instructions: Low Back Strain (ED), Sacroiliitis (ED), Lower Back Exercises (ED ) Additional Instructions: 1. Rest and light activity as tolerated 2. Ibuprofen 600 mg every 8 hr as needed for discomfort 3. Warm compresses or heating pad 4 times daily. Do not sleep on these 4. Continue lidocaine patches as needed 5. Follow up with primary care physician for re-evaluation and consideration of physical therapy 6. ED precautions for worsening pain, numbness, tingling or weakness, incontinence Referrals: Mercedes Ansari [Primary Care Provider] - As per Instructions Prescriptions: Dexamethasone [Decadron 4 MG (*)] 8 mg PO ONCE #2 tab
== END 2018-08-05 11:55 | disposition home or self-care (01) ==
DX: M46.1 Sacroiliitis, not elsewhere classified (principal); S39.012A Strain of muscle, fascia and tendon of lower back, initial encounter; X58.XXXA Exposure to other specified factors, initial encounter; F32.9 Major depressive disorder, single episode, unspecified; G47.33 Obstructive sleep apnea (adult) (pediatric); I50.9 Heart failure, unspecified; E66.01 Morbid (severe) obesity due to excess calories; Z68.43 Body mass index [BMI] 50.0-59.9, adult; F17.210 Nicotine dependence, cigarettes, uncomplicated; Z98.1 Arthrodesis status

== ENCOUNTER 2018-10-26 19:28 | Emergency (ER) | payer MEDICAID ==
[2018-10-26 19:37] VITALS: BP 139/94
[2018-10-26] MEDS ORDERED: KETOROLAC 30 MG/1 ML SDV IM ONE (20:26)
--- NOTE | 2018-10-26 20:30 | EDPHY ---
H & P Time Seen by Provider: 10/26/18 19:44 HPI/ROS: Chief complaint: Low back pain. History of present illness: This is a 38-year-old female who presents to the emergency department for low back pain. She reports the onset of symptoms over the last day. She describes a soreness to the left lower back. It does not radiate. She denies specific precipitating factors. She denies alleviating factors. She does feel like she has had increased urination over the last day but there has been no pain with urination, no hesitancy with urination and no blood in the urine. She denies history of direct trauma. No pain along the spine itself. No pain in the legs. No fevers. No paresthesias, weakness or paralysis or bowel dysfunction. Smoking Status: Heavy smoker Physical Exam: General Appearance: Alert, nontoxic. Eyes: Pupils equal and round no injection. Respiratory: Chest is non tender, lungs are clear to auscultation. Cardiac: regular rate and rhythm Gastrointestinal: Abdomen is soft and non tender, no masses, bowel sounds normal. Musculoskeletal: Neck is supple and non tender. The spine is nontender to palpation along its entire length. Patient is tender to palpation over the left lower lumbar region. I am able to reproduce her pain. Extremities have full range of motion and are non tender. Skin: No rashes or lesions. Neurological: Alert and oriented x4. Strength and sensation intact and symmetrical. Ambulating without difficulty. Constitutional: Initial Vital Signs Temperature (C) 36.8 C 10/26/18 19:36 Heart Rate 99 10/26/18 19:36 Respiratory Rate 18 10/26/18 19:36 Blood Pressure 139/94 H 10/26/18 19:36 O2 Sat (%) 99 10/26/18 19:36 O2 Delivery Mode Room Air Allergies/Adverse Reactions: No Known Allergies Allergy (Verified 10/26/18 19:35) Home Medications: Medication Instructions Recorded Gabapentin [Neurontin] 100 mg PO HS 04/07/15 Topiramate [Topamax 100MG (*)] 100 mg PO 06/13/16 Albuterol [Proventil Inhaler HFA 1 - 2 puffs IH Q4H #1 mdi 02/28/17 (*)] traMADol 10/06/17 Wellbutrin 100mg (*) 08/05/18 Methocarbamol [Robaxin 750 mg (*)] 1,500 mg PO Q8HRS #15 tab 10/26/18 MDM/Departure - MDM Medications Given: Discontinued Medications Ketorolac Tromethamine (Toradol) 60 mg IM EDNOW ONE Stop: 10/26/18 20:27 Last Admin: 10/26/18 20:35 Dose: 60 mg ED Course/Re-evaluation: Patient seen under the supervision of my secondary supervising physician Dr. Rubens Cooley. Patient presents to the emergency department for left lower back pain that is reproducible on palpation. She is nontoxic. She has a nonfocal neurologic exam. There is no midline spine pain. I do not believe imaging studies are warranted. She is given Toradol IM. I have discussed the use of ibuprofen and Tylenol at home. I did discuss the use of Robaxin but she states she has had problems with muscle relaxers in the past causing weakness and we decided not to prescribe this to prevent any complications. She is to follow up with the primary care doctor for recheck. Return precautions are given. Differential Diagnosis: Included but not limited to musculoskeletal pain, urinary tract disease, I doubt spinal cord issue is she does not have midline pain, she does not have neurologic compromise - Depart Disposition: Home, Routine, Self-Care Clinical Impression: Back pain Qualifiers: Back pain location: low back pain Chronicity: acute Back pain laterality: left Sciatica presence: without sciatica Qualified Code(s): M54.5 - Low back pain Condition: Good Instructions: Back Pain (ED) Additional Instructions: Follow-up with your primary care doctor this week for continued evaluation and care Use ibuprofen 600 mg 3 times a day for the next 2-3 days for symptom control You can also take 1000 mg of Tylenol every 8 hr as needed If symptoms worsen or new symptoms develop return to the emergency department for recheck Prescriptions: Methocarbamol [Robaxin 750 mg (*)] 1,500 mg PO Q8HRS #15 tab Referrals: Mercedes Ansari [Primary Care Provider] - As per Instructions
== END 2018-10-26 20:30 | disposition home or self-care (01) ==
DX: M54.5 Low back pain (principal)
CPT/HCPCS: J1885

== ENCOUNTER 2019-02-23 19:14 | Emergency (ER) | payer MEDICAID ==
--- NOTE | 2019-02-23 19:24 | EDPHY ---
H & P Time Seen by Provider: 02/23/19 19:22 HPI/ROS: CHIEF COMPLAINT: Back pain HISTORY OF PRESENT ILLNESS: 38-year-old female with a history of discussed to me performed 12 years ago, who slipped going down the steps today and fell approximately 6 when steps landing on her buttocks. This happened at noon. Patient was initially well, but presents now complaining of ongoing and worsening buttock and low back pain. Patient also reports pain radiating into the left posterior leg. Pain is described as burning. No weakness. Patient denies any head injury, head trauma, loss consciousness, shortness of breath, chest pain, or upper extremity injury. She was otherwise well. REVIEW OF SYSTEMS: A comprehensive 10 system review of systems was reviewed and is otherwise negative aside from elements mentioned in the history of present illness and medical decision making. PAST MEDICAL HISTORY: Back injury, asthma, recent gastric sleeve bypass SOCIAL HISTORY: Heavy smoker General appearance: Uncomfortable appearing. Moving slowly about the bed. Focused examination of back: No trauma is noted. Mild tenderness to palpation along the lower lumbar spine and upper sacral area. No deformities palpated. No erythema. No overlying skin tear is, lacerations, or abrasions. Neurological exam: Straight leg raise test is negative bilaterally. Hip flexion, knee extension, knee flexion, dorsiflexion and plantar flexion are 5/ 5 bilaterally. EHL 5 over 5. Sensation is intact to light touch throughout. 2 + knee and ankle jerk bilaterally. Vascular exam: Dorsalis pedis and posterior tibial pulses are intact. Brisk capillary refill. Smoking Status: Heavy smoker Constitutional: Initial Vital Signs Temperature (C) 36.8 C 02/23/19 19:17 Heart Rate 90 02/23/19 19:17 Respiratory Rate 16 02/23/19 19:17 O2 Sat (%) 96 02/23/19 19:17 O2 Delivery Mode Room Air Allergies/Adverse Reactions: No Known Allergies Allergy (Verified 02/23/19 19:16) Home Medications: Medication Instructions Recorded Gabapentin [Neurontin] 100 mg PO HS 04/07/15 Topiramate [Topamax 100MG (*)] 100 mg PO 06/13/16 Albuterol [Proventil Inhaler HFA 1 - 2 puffs IH Q4H #1 mdi 02/28/17 (*)] traMADol 10/06/17 Wellbutrin 100mg (*) 08/05/18 Tramadol HCl 50 mg PO Q6 PRN #20 tablet 02/23/19 methylPREDNISolone [Medrol Dose 4 mg PO DAILY #1 each 02/23/19 Steven] Medical Decision Making - Diagnostics Imaging Results: Imaging Impressions Lumbar Spine X-Ray 02/23/19 19:33 Impression: 1. No lumbar compression fracture. 2. L4-L5 mild grade 1 anterolisthesis. 3. L5-S1 severe degenerative disk disease. 4. No definite sacral fracture on the lateral view. Suboptimal AP view. 5. Consider additional MRI imaging, if clinically indicated. Pelvis X-Ray 02/23/19 19:33 Impression: 1. Suboptimal evaluation of the sacrum. 2. Otherwise no definite pelvic bone fracture. ED Course/Re-evaluation: Pelvis and lumbar spine x-rays negative for any acute fracture. Sacral views on the pelvis or somewhat suboptimal, however, no displaced sacral fractures identified. I discussed this with the patient. At this point we will provide pain medication as well as anti-inflammatories. Patient will follow up with [facility] as needed. Please see the discharge instructions. My usual and customary precautions for back pain were also discussed with the patient at length and she understands reasons to return to the emergency department. Differential Diagnosis: After history was obtained and physical exam performed, the differential for back pain was considered including but not limited to muscular pain, herniated disc, spine fracture, intra-abdominal causes, and urinary tract infection. - Data Points Medications Given: Discontinued Medications Dexamethasone (Decadron) 8 mg PO EDNOW ONE Stop: 02/23/19 19:56 Last Admin: 02/23/19 20:17 Dose: 8 mg Oxycodone/Acetaminophen (Percocet 5/325mg Prepack#4) 1 btl TAKEHOME EDNOW ONE Stop: 02/23/19 20:40 Last Admin: 02/23/19 20:46 Dose: 1 btl Tramadol HCl (Ultram) 50 mg PO EDNOW ONE Stop: 02/23/19 19:51 Last Admin: 02/23/19 20:05 Dose: 50 mg Departure - Departure Disposition: Home, Routine, Self-Care Clinical Impression: Sacral pain Back pain Qualifiers: Back pain location: low back pain Chronicity: acute Back pain laterality: midline Sciatica presence: unspecified whether sciatica present Qualified Code(s ): M54.5 - Low back pain Condition: Fair Instructions: Oxycodone/Acetaminophen (By mouth), Acute Low Back Pain (ED) Additional Instructions: Musculoskeletal pain is often treated with anti-inflammatories, muscle relaxants , and pain medications. 1. You have been given a prescription for a Medrol Dosepak to use as directed to treat inflammation. Please begin taking this tomorrow. 2. You been given a prescription for tramadol. Please use this as needed for pain. For mild pain, I suggest Tylenol (650mg-1000mg of Tylenol) up to 3 times a day. Not exceed 3000 mg in a 24 hour period. I also suggest lidocaine patches. 4% lidocaine patches are available over-the- counter. Apply ice for 20-30 minutes every 2-3 hours for the next 48 hours. After 48 hours, a heating pad or hot tub may feel better. Please follow up with your primary care physician if you're not improving as expected in the next several days. Consider physical therapy or chiropractic followup for persistent discomfort. Return to the emergency department if you experience significantly worsening pain, pain radiating into the legs, weakness, numbness or tingling, difficulties with bowel or bladder, fever, nausea, vomiting, or other concerns. Referrals: Mercedes Ansari [Primary Care Provider] - As per Instructions Barbara Smith DO [Doctor of Osteopathy] - As per Instructions (Followup with [facility] as [facility].) Prescriptions: methylPREDNISolone [Medrol Dose Steven] 4 mg PO DAILY #1 each Tramadol HCl 50 mg PO Q6 PRN #20 tablet PRN Reason: pain
[2019-02-23] MEDS: traMADol 50 MG TAB PO ONE (20:05)
[2019-02-23] MEDS: DEXAMETHASONE 4 MG TAB PO ONE (20:17)
[2019-02-23] MEDS: OXYCODONE/APAP 5/325MG PREPACK#4 BTL TAKEHOME ONE (20:46)
[2019-02-23 20:49] VITALS: BP 118/67
== END 2019-02-23 20:49 | disposition home or self-care (01) ==
DX: M54.5 Low back pain (principal); W10.8XXA Fall (on) (from) other stairs and steps, initial encounter

== ENCOUNTER 2019-02-26 19:17 | Emergency (ER) | payer MEDICAID ==
[2019-02-26] MEDS ORDERED: LET GEL TOPICAL 1 EA SYR TP ONE (20:00)
--- NOTE | 2019-02-26 20:03 | EDPHY ---
H & P Time Seen by Provider: 02/26/19 19:28 HPI/ROS: CHIEF COMPLAINT: [Infected dow] HISTORY OF PRESENT ILLNESS: 38-year-old female presents with infected dow. She was using hot wax 1 week ago and the hot wax axilla struck her right foot and lower leg. She has been taking care of the dow with soap and water and then antibiotic ointment. This morning she awoke with increased pain and noticed redness around the burn site. No fever. Symptoms are moderate. Tetanus is up-to-date. ROS: No numbness, weakness, excessive bleeding, syncopal episode, other injury. Past Medical/Surgical History: Gastric bypass Smoking Status: Heavy smoker Physical Exam: Alert and oriented, pleasant Extremities: Right foot-2 cm scabbed over wound with surrounding erythema approx 2cm in diameter; right anterior lower leg-2cm wound with surrounding erythema, approximately 3 cm in diameter Skin: As above Neuro: Motor and sensory intact Vascular: Capillary refill brisk distally Constitutional: Initial Vital Signs Temperature (C) 36.6 C 02/26/19 19:18 Heart Rate 78 02/26/19 19:18 Respiratory Rate 16 02/26/19 19:18 Blood Pressure 152/72 H 02/26/19 19:18 O2 Sat (%) 96 02/26/19 19:18 O2 Delivery Mode Room Air Allergies/Adverse Reactions: No Known Allergies Allergy (Verified 02/23/19 19:16) Home Medications: Medication Instructions Recorded Gabapentin [Neurontin] 100 mg PO HS 04/07/15 Topiramate [Topamax 100MG (*)] 100 mg PO 06/13/16 traMADol 10/06/17 Wellbutrin 100mg (*) 08/05/18 Tramadol HCl 50 mg PO Q6 PRN #20 tablet 02/23/19 methylPREDNISolone [Medrol Dose 4 mg PO DAILY #1 each 02/23/19 Steven] Cephalexin [Keflex (*)] 500 mg PO TID #30 cap 02/26/19 Medical Decision Making ED Course/Re-evaluation: Assess: localized wound infection. LET applied, wounds cleansed then abx ointment placed. Keflex prescribed. Departure - Departure Disposition: Home, Routine, Self-Care Clinical Impression: Wound infection Condition: Good Instructions: Wound Infection (ED) Additional Instructions: Clean the dow with soap and water 3 times daily. Apply antibiotic ointment after cleaning. Take Keflex as prescribed. Referrals: Mercedes Ansari [Primary Care Provider] - As per Instructions Prescriptions: Cephalexin [Keflex (*)] 500 mg PO TID #30 cap
[2019-02-26 21:06] VITALS: BP 145/81
== END 2019-02-26 21:06 | disposition home or self-care (01) ==
DX: L08.9 Local infection of the skin and subcutaneous tissue, unspecified (principal); F17.200 Nicotine dependence, unspecified, uncomplicated